=== PATIENT | female | born 1945 | race Native Hawaiian/Other Pacific Islander ===

== ENCOUNTER 2020-08-09 18:28 | Outpatient (CLI) | payer OTHER, MEDICARE ==
[2020-08-09 21:05] LABS: POTASSIUM 4.6 mmol/L (3.6-5.2)
== END 2020-08-09 22:32 | disposition home or self-care (01) ==
LOC: LAB 18:28
PROVIDERS: ATTEND Family Medicine
DX: I10 Essential (primary) hypertension (principal); E11.9 Type 2 diabetes mellitus without complications; E78.49 Other hyperlipidemia
CPT/HCPCS: 80048